=== PATIENT | female | born 1955 | race Caucasian/White ===

== ENCOUNTER 2019-03-23 13:00 | Emergency (ER) | payer MEDICAID ==
[~2019-03-23] VITALS: Ht 160 cm; Wt 94.6 kg
[2019-03-23 13:37] VITALS: BP 156/72; PULSE 67; RESP 18; Ht 160 cm; Wt 94.6 kg
[2019-03-23] MEDS ORDERED: PRED20TA PO (14:53)
[2019-03-23] MEDS ORDERED: HYDR-4011 PO (14:53)
--- NOTE | 2019-03-23 15:05 | ERD ---
ER Documentation Chief Complaint Chief Complaint right foot swelling/redness (pt.states spider bite)x 1 month HPI 64-year-old female presenting complaint of swelling and tenderness to the first right MTP joint for the past month. Patient thinks she got bit by spider but did not see a spider bite her, rather she felt sensation of something crawling in that area and then felt pain. Pain is made worse with walking and palpation. Denies any fevers, chills, numbness, tingling, history of trauma. ROS All systems reviewed and are negative except as per history of present illness. Medications Home Meds Active Scripts Hydrocodone/Acetaminophen ([place] 5-325 Tablet) 1 Each Tablet, 1 TAB PO Q6H PRN for PAIN, #7 TAB Prov:KIRK SEARS 03/23/19 Prednisone* (Prednisone*) 20 Mg Tab, 40 MG PO DAILY for 7 Days, TAB Prov:KIRK SEARS 03/23/19 FmHx Family History: No diabetes, No coronary disease, No other Physical Exam Vitals Vital Signs Date Temp Pulse Resp B/P (MAP) Pulse Ox O2 O2 Flow FiO2 Time Delivery Rate 03/23/19 97.9 67 18 156/72 99 13:37 (100) Physical Exam Const: No acute distress Head: Atraumatic Eyes: Normal Conjunctiva ENT: Normal External Ears, Nose and Mouth. Neck: Full range of motion. No meningismus. Resp: Clear to auscultation bilaterally Cardio: Regular rate and rhythm, no murmurs Abd: Soft, non tender, non distended. Normal bowel sounds Skin: No petechiae or rashes Back: No midline or flank tenderness Ext: No cyanosis, or edema Neur: Awake and alert Psych: Normal Mood and Affect First right toe. Edema and erythema noted over the lateral aspect of the MTP of first right toe. There is no fluctuance. Overlying skin is intact. There is no underlying bony deformity. Range of motion is intact. Distal sensation is intact. Procedures/MDM MDM: Patient's presentation is consistent with acute gout attack area admission advised that gout is a chronic condition which needs to be followed up with her primary care provider. Patient given Rx for prednisone and [place] for breakthr ough pain. I have low suspicion for neurovascular compromise, compartment syndrome, fracture, osteomyelitis, septic joint, or other emergent condition. Patient discharged with strict ER precautions. Patient advised to follow up with PMD. All questions answered at discharge. Departure Diagnosis: Primary Impression: Gout attack Gout site: foot Gout etiology: unspecified cause Laterality: right Qualified Codes: M10.9 - Gout, unspecified Condition: Stable Patient Instructions: What Is Gout?, Treating Gout Attacks, Gout Diet Referrals: COMM[facility]ITY CLIN[facility] YOU HAVE RECEIVED A MEDICAL SCREENING EXAM AND THE RESULTS INDICATE THAT YOU DO NOT HAVE A CONDITION THAT REQUIRES URGENT TREATMENT IN THE EMERGENCY DEPARTMENT. FURTHER EVALUATION AND TREATMENT OF YOUR CONDITION CAN WAIT UNTIL YOU ARE SEEN IN YOUR DOCTORS OFFICE WITHIN THE NEXT 1-2 DAYS. IT IS YOUR RESPONSIBILITY TO MAKE AN APPOINTMENT FOR FOLOW-UP CARE. IF YOU HAVE A PRIMARY DOCTOR --you should call your primary doctor and schedule an appointment IF YOU DO NOT HAVE A PRIMARY DOCTOR YOU CAN CALL OUR PHYSICIAN REFERRAL HOTLINE AT IF YOU CAN NOT AFFORD TO SEE A PHYSICIAN YOU CAN CHOSE FROM THE FOLLOWING CO [facility] [id number] [facility] [address] [facility] [facility] [address] [facility] [address] [facility]. [facility] [address] [facility] [facility]. [address] Additional Instructions: FOLLOW UP WITH YOUR PRIMARY CARE PHYSICIAN TOMORROW.Return to this facility if you are not improving as expected. KIRK SEARS Mar 23, 2019 15:05
== END 2019-03-23 15:12 | disposition home or self-care (01) ==
LOC: FTE 13:00
DX: M10.9 Gout, unspecified (principal)
CPT/HCPCS: 99283